=== PATIENT | female | born 1945 | race Caucasian/White ===

== ENCOUNTER 2017-08-12 06:00 | Observation (INO) | payer MEDICARE ==
--- NOTE | 2017-08-09 12:06 | Diagnostic Imaging Report ---
PROCEDURE: Frontal and lateral views of the chest. COMPARISON: None. INDICATIONS: PREOPERATIVE CHEST XRAY FOR KNEE SURGERY FINDINGS: Lines/tubes: None. Lungs: The lungs are well inflated and clear. There is no evidence of pneumonia or pulmonary edema. Pleura: There is no pleural effusion or pneumothorax. Heart and mediastinum: The heart and the mediastinum are normal. Atherosclerotic calcifications. Bones: No acute bony abnormality. Degenerative changes of the thoracic spine. IMPRESSION: No acute radiographic abnormality. Dictated by: Carlo Lamar M.D. on 08/09/2017 at 12:15 Electronically approved by: Carlo Lamar M.D. on 08/09/2017 at 12:15
[~2017-08-12] VITALS: Ht 157.5 cm; Wt 63.5 kg
[~2017-08-12 06:00] MED LIST: BACTRIM; CALCET TABLET1 EACH PO; LORAZEPAM; LOVAZA1 GM PO; MIACALCIN3.7 ML; OCUVITE TABLET1 EAC1 PO; PRILOSEC OTC20 MG PO; REGLAN; SUPER ENZYMES PO; VITAMIN B-125000 MCG SL; VITAMIN D35000 UNI1 PO
--- OUTSIDE RECORDS SUMMARY | 2017-08-12 06:03 | XMS REPORT ---
Author Author [facility] Address Unknown Phone Unavailable Care Team Providers Care Alley Worker Name Role Phone AMAN GARCIA Unavailable Unavailable Problems This patient has no known problems. Allergies, Adverse Reactions, Alerts This patient has no known allergies or adverse reactions. Medications This patient has no known medications. Results Test Description Test Time Test Comments Text Results Atomic Results Result Comments CHEST 2 VIEWS [place] [address] Patient Name: GUILLERMO ECKERT MR #: [id number] : 1945 Age/Sex: 72/F Req #: [id number] Adm Physician: Ordered by: AMAN GARCIA MD Report #: [id number] Location: OR Room/Bed: Procedure: [id number] DX/CHEST 2 VIEWS Exam Date: 08/09/17 Exam Time: 1140 REPORT STATUS: Signed PROCEDURE: Frontal and lateral views of the chest. COMPARISON: None. INDICATIONS: PREOPERATIVE CHEST XRAY FOR KNEE SURGERY FINDINGS: Lines/tubes: None. Lungs: The lungs are well inflated and clear. There is no evidence of pneumonia or pulmonary edema. Pleura: There is no pleural effusion or pneumothorax. Heart and mediastinum: The heart and the mediastinum are normal. Atherosclerotic calcifications. Bones: No acute bony abnormality. Degenerative changes of the thoracic spine. IMPRESSION: No acute radiographic abnormality. Dictated by: Klaus Diaz M.D. on 2017 at 12:15 Electronically approved by: Klaus Diaz M.D. on 2017 at 12:15 Dictated By: KLAUS DIAZ MD 1215 Transcribed By: TESS on 08/09/17 1215 COPY TO: AMAN GARCIA MD
[2017-08-12] MEDS ORDERED: TRANEXAMIC ACID 1,000 MG/10 ML ML ONE (06:58)
[2017-08-12] MEDS ORDERED: MUPIROCIN 2% OINT 22 GM TUBE ONE (06:58)
[2017-08-12] MEDS ORDERED: BACITRACIN 50,000 UNIT VIAL ONE (06:59)
[2017-08-12] MEDS ORDERED: CELECOXIB 200 MG CAP ONE (07:07)
[2017-08-12] MEDS ORDERED: GABAPENTIN 300 MG CAP ONE (07:08)
[2017-08-12] MEDS ORDERED: CEFAZOLIN SOD 2 GM/D5W 50ML 50 ML IV ONE (07:08)
[2017-08-12] MEDS ORDERED: DEXAMETHASONE SOD PHOS 10 MG/1 ML VIAL ONE (07:08)
[2017-08-12] MEDS ORDERED: ROPIVACAINE 246.25 MG, EPINEPHRINE HCL 1:1000 0.5 MG, CLONIDINE HCL 0.08 MG, KETOROLAC ... INJ ONE ×5 (07:30)
[2017-08-12] MEDS ORDERED: ROPIVACAINE 0.5% 5 MG/ML 30 ML SDV ONE ×2 (07:30→18:27)
[2017-08-12] MEDS ORDERED: LIDOCAINE 2% /EPINEPHRINE 20 ML SDV INJ ONE (07:31)
[2017-08-12] MEDS ORDERED: HYDROCODONE/APAP 5MG-325MG TAB PO PRN (10:00)
[2017-08-12] MEDS ORDERED: PROMETHAZINE HCL (IM) 25 MG/ML VIAL IM PRN (10:00)
[2017-08-12] MEDS ORDERED: ONDANSETRON HCL INJ 2 MG/ML VIAL IV PRN (10:00)
[2017-08-12] MEDS ORDERED: DIPHENHYDRAMINE HCL INJ 50 MG/ML VIAL IM/IV PRN (10:00)
[2017-08-12] MEDS ORDERED: ACETAMINOPHEN 650 MG SUPP PR PRN (10:00)
[2017-08-12] MEDS ORDERED: KETOROLAC TROMETHAMINE 30 MG/ML VIAL IV PRN (10:00)
[2017-08-12] MEDS ORDERED: DOCUSATE SODIUM 100 MG CAP PO PRN (10:00)
--- NOTE | 2017-08-12 10:59 | Diagnostic Imaging Report ---
PROCEDURE:KNEE RIGHT 1-2 VIEWS TECHNIQUE:AP and crosstable lateral views right knee INDICATION:Postop surgical evaluation COMPARISON:None. FINDINGS: See conclusion. CONCLUSION: 1. Total right knee arthroplasty intact and in anatomic alignment. 2. Expected postoperative sequela without acute abnormality. Dictated by: Max Pisano M.D. on 08/12/2017 at 11:07 Electronically approved by: Max Pisano M.D. on 08/12/2017 at 11:07
--- NOTE | 2017-08-12 11:16 | Operative Report ---
DATE OF PROCEDURE: August 12, 2017 SHIP'S COOK: Francois Albarran PA-C The patient was brought to the operating room for induction of anesthesia. Throughout this case, my PA's assistance was necessary for retraction of soft tissue and positioning of the extremity. This allows for efficient and technically successful execution of the operation and is considered medically necessary. PREOPERATIVE DIAGNOSIS: Osteoarthritis, right knee. POSTOPERATIVE DIAGNOSIS: Osteoarthritis, right knee. PROCEDURE: Right total knee arthroplasty. INDICATIONS: The patient is a 72-year-old lady with end-stage arthritis of her right knee. She has failed conservative management and would like to proceed with a right total knee replacement. She has been through a left total knee replacement about 8 years ago. I have reviewed the risks and benefits, the implants, the recovery and answered all of her questions. She states she understands and wishes to proceed. DESCRIPTION OF PROCEDURE: The patient was brought to the operating room and placed under general anesthetic. She received a regional block, prophylactic antibiotics and tranexamic acid in the holding area. Her right lower extremity was prepped and draped in a sterile manner. A preoperative time out was performed. The extremity was exsanguinated, and a proximal tourniquet was inflated to 300 mmHg. A limited incision anterior approach with medial parapatellar arthrotomy was performed. Soft-tissue releases were performed to bring the knee up into flexion with the patella everted. Complete loss of articular cartilage down to polished subchondral bone in the medial compartment was noted. Marginal osteophytes and meniscal remnants were removed. The cruciate ligaments were sacrificed. A Jeter and Nephew posterior stabilized Jeanette II knee system was used throughout the case. An extramedullary cutting guide was used to resect the proximal tibia. The tibial baseplate was a size number 3. The central fin punch was impacted, and attention was directed towards the distal femur. An intramedullary cutting guide was used to resect the distal femur in 6 degrees of valgus and rotation referenced off of a combination of landmarks including Chencho line, the epicondylar axis and posterior condyles. The femoral component was a size number 4. The anterior and posterior chamfer cuts were made. Trial reductions were then performed. A 9-mm ultracongruent tibial insert provided optimal soft-tissue balancing in full extension and 90 degrees of flexion. The patella was resurfaced with a 29-mm x 7.5-mm patellar button. The thickness was checked before and after and was right around 21 mm. Patellar tracking was concentric. The trial implants were removed. A 100 mL premixed pericapsular injection was placed into the soft tissue. The knee was thoroughly irrigated with a Pulsavac. The components were cemented into place using a single mix of Palacos cement preloaded with gentamicin. Care was taken to remove extravasated cement. The wound was further irrigated while the cement cured. The arthrotomy was then closed with interrupted #1 Ethibond. The knee was put through flexion and extension to ensure a secure closure. The skin was closed subcuticular Vicryl and kirstin. A sterile bandage was applied. The patient was transported to the recovery room in stable condition. Blood loss was minimal. All needle and sponge counts were correct. Job#: [id number]
[2017-08-12] MEDS: ACETAMINOPHEN 1000 MG/100 ML IV SCH ×3 (12:00→23:56)
[2017-08-12] MEDS ORDERED: CEFAZOLIN SOD 1 GM/NS 50ML 50 ML IV SCH (14:00)
[2017-08-12] MEDS ORDERED: CEFAZOLIN SOD 1 GM VIAL ONE (15:11)
[2017-08-12] MEDS ORDERED: ONDANSETRON HCL INJ 2 MG/ML VIAL ONE ×2 (15:11→18:43)
[2017-08-12] MEDS ORDERED: SODIUM CHLORIDE 0.9% 50ML 50 ML ONE (15:13)
[2017-08-12] MEDS ORDERED: PROMETHAZINE HCL (IM) 25 MG/ML VIAL ONE (15:57)
[2017-08-12] MEDS: CEFAZOLIN SOD 1 GM VIAL IV SCH ×2 (16:00→23:48)
[2017-08-12] MEDS ORDERED: LIDOCAINE 2%/ EPINEPHRINE 20ML MDV ONE (18:27)
[2017-08-12] MEDS ORDERED: FENTANYL CITRATE/PF 100MCG/2 ML INJ ONE (18:32)
[2017-08-12] MEDS ORDERED: MIDAZOLAM HCL 2 MG/2 ML VIAL ONE (18:32)
[2017-08-12] MEDS ORDERED: DEXAMETHASONE SOD PHOS INJ 4 MG/ML VIAL ONE (18:43)
[2017-08-12] MEDS ORDERED: LIDOCAINE HCL 2% LOCAL INJ 5 ML SDV VIAL INJ ONE (18:43)
[2017-08-12] MEDS ORDERED: PROPOFOL IV EMULSION 10 MG/ML 20 ML VIAL ONE (18:43)
[2017-08-12] MEDS ORDERED: SEVOFLURANE INHAL SOLN 250 ML PEN BTL ONE (18:43)
[2017-08-12 18:51] VITALS: BP 119/57
[2017-08-12 18:52] VITALS: BP 119/57
[2017-08-12 18:57] VITALS: BP 119/57
[2017-08-12] MEDS: FAMOTIDINE 20 MG TAB PO SCH (19:10)
[2017-08-12] MEDS: CELECOXIB 100 MG CAP PO SCH (19:10)
[2017-08-12] MEDS: ASPIRIN 325 MG TAB PO SCH (19:10)
[2017-08-12] MEDS: SODIUM CHLORIDE 0.9% 1000ML 1,000 ML IV SCH ×2 (19:55→20:36)
[2017-08-12 20:00] VITALS: BP 97/52
[2017-08-12] MEDS ORDERED: ZOLPIDEM TARTRATE 5 MG TAB PO PRN (21:00)
[2017-08-13 02:35] VITALS: BP 93/49
[2017-08-13] MEDS ORDERED: ARTIFICIAL TEARS (OPTH) 15 ML BTL OU PRN (05:30)
[2017-08-13] MEDS: SODIUM CHLORIDE 0.9% 1000ML 1,000 ML IV SCH (05:47)
[2017-08-13] MEDS: ACETAMINOPHEN 1000 MG/100 ML IV SCH (05:49)
[2017-08-13 06:12] VITALS: BP 96/46
[2017-08-13 07:05] LABS: HEMATOCRIT 33.4 % (34.2-44.1); HEMOGLOBIN 11.2 g/dL (12.0-16.0)
[2017-08-13 08:16] VITALS: BP 109/54
[2017-08-13] MEDS: CELECOXIB 100 MG CAP PO SCH (08:32)
[2017-08-13] MEDS: CEFAZOLIN SOD 1 GM VIAL IV SCH (08:32)
[2017-08-13] MEDS: FAMOTIDINE 20 MG TAB PO SCH (08:32)
[2017-08-13] MEDS: ASPIRIN 325 MG TAB PO SCH (08:32)
[2017-08-13] MEDS: HYDROCODONE/APAP 7.5MG-325MG 1 EA TAB PO PRN ×2 (08:39→12:45)
[2017-08-13 09:45] VITALS: BP 109/54
[2017-08-13] MEDS ORDERED: ACETAMINOPHEN 1000 MG/100 ML IV PRN (10:00)
[2017-08-13] MEDS ORDERED: CELEBREX100 MG PO (10:58)
[2017-08-13] MEDS ORDERED: ASPIRIN325 MG PO (10:58)
[2017-08-13 11:31] VITALS: BP 120/58
[2017-08-13] MEDS ORDERED: NORCO 7.5-3251 EACH PO (13:10)
--- NOTE | 2017-09-13 15:19 | Discharge Summary ---
CHIEF COMPLAINT: Right knee pain. HISTORY OF PRESENT ILLNESS: This patient is a 72-year-old female who complains of right knee pain for many years. She has already been through a left total knee replacement and is happy with the results. She has tried cortisone injections and anti-inflammatories without lasting relief. Her x-rays are consistent with end-stage arthritis of the right knee. The treatment options were discussed. The risks and benefits of a right total knee replacement were explained. The patient states she understands and wishes proceed. HOSPITAL COURSE: The patient underwent a right total knee replacement without complications. She was then transferred to the recovery room and the floor in stable condition. She progressed fine with postoperative physical therapy. She remained stable throughout her hospital stay. She was able to be discharged home on postop day 1. PRINCIPAL DIAGNOSIS: Osteoarthritis of the right knee. PRINCIPAL PROCEDURE: Right total knee replacement. DISCHARGE INSTRUCTIONS: The patient was discharged home with home health and physical therapy arranged. She was to be weightbearing as tolerated with a rolling walker. She was to resume her home medications as directed. She was to take aspirin twice a day for thrombin prophylaxis. She was instructed to follow up in our office in 8-10 days for followup. DICTATED BY JOSE CRUZ GOMEZ PA-C AMAN GARCIA MD Job#: [id number] [place]
== END 2017-08-13 13:52 | disposition home health service (06) ==
LOC: OR 06:00 → MED/SURG 18:45 → INTOOBSV 18:45
PROVIDERS: ADMIT Specialist; ATTEND Specialist
DX: M17.11 Unilateral primary osteoarthritis, right knee (principal); Z96.652 Presence of left artificial knee joint; L40.9 Psoriasis, unspecified; D64.9 Anemia, unspecified
CPT/HCPCS: 27447; 36415; 71046; 73560; 85014; 85018; 86850; 86900; 86920; 97110; 97116; 97161; C1713; G0378 ×2; G8978; G8979; J0171; J0690 ×2; J1100 ×2; J1885; J2001 ×2; J2250; J2405; J2550; J2795

== ENCOUNTER 2017-08-16 00:35 | Emergency (ER) | payer MEDICARE ==
[~2017-08-16] VITALS: Ht 157.5 cm; Wt 63.5 kg
[~2017-08-16 00:35] MED LIST changes: +ASPIRIN325 MG PO; +CELEBREX100 MG PO; +NORCO 7.5-3251 EACH PO
--- OUTSIDE RECORDS SUMMARY | 2017-08-16 00:39 | XMS REPORT | Continuity of Care Document ---
Author Author [facility] Organization [facility] Address [address] [place] [address] Phone Unavailable Care Team Providers Care Scientific Specialist Name Role Phone TYLER SANCHEZ MD PCP Insurance Providers Guarantor Guillermo Eckert Address [address] [place] [address] Email [email or web address] Policy Number [id number] Subscriber's Name Guillermo Eckert Relationship 18 Self / Same As Patient Group Number [id number] Group Name SF Effective Date 10 Advance Directives Directive Response Recorded Date/Time Does the patient have an advance directive? No 08/12/17 6:53pm If yes, is advance directive on file with [facility]? No 12/31/12 9:42am If not on file with [facility] will patient provide a copy? Yes 08/09/17 10:48am Do you have a Directive to Physician? No 08/09/17 10:48am Do you have a Medical Power of [employer]? No 08/09/17 10:48am Do you have an out of hospital Do Not Resuscitate Order? No 08/09/17 10:48am Do you have any special needs we should be aware of? No 08/09/17 10:48am Do you have a support person here with you today? Yes 08/09/17 10:49am Did patient receive Notice of Privacy Practices? Yes 08/09/17 10:49am Did patient receive patient rights and responsibilities? Yes 08/09/17 10:49am Problems No problem information available. Medications Current Home Medications Medication Dose Units Route Directions Days Qty Instructions Start Date Aspirin 325 Mg Tablet 325 Mg Oral Twice A Day 21 Days 08/13/17 Calcium Carb & Lact/Vitamin D3 (Calcet Tablet) 1 Each Tablet 1 Tab-Cap Oral Daily Celecoxib (Celebrex*) 100 Mg Capsule 200 Mg Oral Daily 30 Days 12/23 Cholecalciferol (Vitamin D3) (Vitamin D3) 5,000 Unit Tablet 5,000 Mg Oral Daily Cyanocobalamin (Vitamin B-12) (Vitamin B-12) 5,000 Mcg Tab.subl 5,000 Mcg Sublingual Daily Hydrocodone Bit/Acetaminophen ([place] 7.5-325 Tablet) 1 Each Tablet 1 Ea Oral Every 4 Hours as needed for Pain Lorazepam 1 Mg Bedtime [place]-3 Acid Ethyl Esters (Lovaza) 1 Gm Capsule 1 Gm Oral Daily Omeprazole Magnesium (Prilosec Otc) 20 Mg Tablet.dr 20 Mg Oral As Needed Super Enzymes 1 Tab Oral As Needed Vit A,C & E/Lutein/Minerals (Ocuvite Tablet) 1 Each Tablet 1 Each Oral Daily Past Home Medications Medication Directions Ordered Status Bactrim , Discontinued Calcitonin,[place],Synthetic (Miacalcin) 3.7 Ml [place].pump, 3.7 Ml Nasal Bedtime Discontinued Reglan , As Needed Discontinued Social History Social History Problem Response Recorded Date/Time Onset Date Status Hx Psychiatric Problems No 08/12/2017 6:53pm Not Applicable Not Applicable Hx Eating Disorder No 08/12/2017 6:53pm Not Applicable Not Applicable Hx Substance Use Disorder No 08/12/2017 6:53pm Not Applicable Not Applicable Hx Depression No 08/12/2017 6:53pm Not Applicable Not Applicable Hx Alcohol Use No 08/12/2017 6:53pm Not Applicable Not Applicable Hx Substance Use Treatment No 08/12/2017 6:53pm Not Applicable Not Applicable Hx Physical Abuse No 08/12/2017 6:53pm Not Applicable Not Applicable Smoking Status Start Date Stop Date Never Smoker Hospital Discharge Instructions No hospital discharge instruction information available. Plan of Care Discharge Date 08/13/17 1:52pm Disposition HOME HEALTH SERVICE Instructions/Education Provided Post Operative Pain Stitches and Mandy Care Prescriptions See Medication Section Referrals AMAN GARCIA MD (Orthopedic) Order Date: 1 Week Entered Date: 08/13/2017 10:48am Address: [address] [place] [place] [address] [place] [id number] Additional Instructions/Education F/U ON SATURDAY NEXT WEEK WITH DR. GARCIA ACTIVITY TOLERATED CPM 3 TIMES A DAY FOR 2 HOURS AT A TIME. LAST CPM RANGE NOTED AT 65 DEGREES. INCREASE BY 5 DEGREES IF TOLERATED OK TO SHOWER TOMORROW. DO NOT SIT IN THE BATHTUB CHANGE DRESSING TO KNEE DAILY. Functional Status Query Response Date Recorded FUNCTIONAL STATUS . August 12, 2017 5:01pm Assistive Devices None August 12, 2017 6:57pm Ambulation Ability Minimum Assistance 1 person assist August 12, 2017 6:57pm Toileting Ability Minimum Assistance August 12, 2017 6:57pm Allergies, Adverse Reactions, Alerts No known allergies. Immunizations No immunization information available. Vital Signs Acute Vital Signs Vital Response Date/Time Temperature (Fahrenheit) 96.8 degrees F (97.6 - 99.5) 08/13/2017 11:31am Pulse Pulse Rate (adult) 63 bpm (60 - 90) 08/13/2017 11:31am Respiratory Rate 17 bpm (12 - 24) 08/13/2017 11:31am Blood Pressure 120/58 mm Hg 08/13/2017 11:31am Height 5 ft 2 in 08/12/2017 6:52pm Weight 140 lb 08/12/2017 6:52pm Body Mass Index 25.6 kg/m^2 08/12/2017 6:53pm Results Laboratory Results Test Name Result Units Flags Reference Collection Date/Time Result Date/ Time Comments Hemoglobin 11.2 g/dL L 12.0-16.0 08/13/2017 6:45am 08/13/2017 7:10am Hematocrit 33.4 % L 34.2-44.1 08/13/2017 6:45am 08/13/2017 7:10am Procedures Procedure Status Date Provider(s) Total replacement of right knee joint Completed 08/12/17 AMAN GARCIA MD X-ray of chest, two views Active 08/09/17 AMAN GARCIA MD Encounters Encounter Location Arrival/Admit Date Discharge/Depart Date Attending Provider Discharged Inpatient (obs) [facility] 08/12/17 6:45pm 12/23 1:52pm AMAN GARCIA MD
--- NOTE | 2017-08-16 02:59 | Diagnostic Imaging Report ---
EXAMINATION: ABDOMEN ACUTE SERIES W/PA CXR INDICATION: Unable to pass stool COMPARISON: None FINDINGS: TUBES and LINES: None. LUNGS: Lungs are well inflated. Lungs are clear. There is no evidence of pneumonia or pulmonary edema. PLEURA: No pleural effusion or pneumothorax. HEART AND MEDIASTINUM: The cardiomediastinal silhouette is unremarkable. BONES AND SOFT TISSUES: No acute osseous lesion. Soft tissues are unremarkable. ABDOMEN: No free air under the diaphragm. Moderate amount of stool throughout the left hemicolon and rectum. IMPRESSION: 1. No acute thoracic abnormality. 2. Constipation. Signed by: Dr. Ethan Brooks M.D. on 08/16/2017 2:56 AM
== END 2017-08-16 03:34 | disposition home or self-care (01) ==
LOC: ER 00:35
DX: R10.13 Epigastric pain (principal); K59.00 Constipation, unspecified; I10 Essential (primary) hypertension; K21.9 Gastro-esophageal reflux disease without esophagitis; K58.9 Irritable bowel syndrome, unspecified; Z87.19 Personal history of other diseases of the digestive system
CPT/HCPCS: 74022; 99283

== ENCOUNTER 2020-06-15 09:22 | Inpatient (IN) | payer MEDICARE ==
[~2020-06-15] VITALS: Ht 157.5 cm; Wt 63.5 kg
[2020-06-15] VITALS (7 sets, daily range): BP systolic 104–163; BP diastolic 55–82
[2020-06-15] MEDS ORDERED: CEFEPIME 1GM/NS 0.9% 50 ML 50 ML IV STA (09:39)
[2020-06-15 10:00] LABS: HEMOGLOBIN 7.3 g/dL (12.0-16.0); LYMPHOCYTES # (AUTO) 0.3 (1.0-3.2); LYMPHOCYTES % 62.7 % (18.0-39.1); MEAN CORPUSCULAR HEMOGLOBIN 31.9 pg (28-32); MEAN CORPUSCULAR HGB CONC 32.7 g/dL (31-35); MEAN CORPUSCULAR VOLUME 97.4 fL (81-99); MONOCYTES # (AUTO) 0.1 (0.2-0.8); MONOCYTES % 13.7 % (4.4-11.3); NEUTROPHILS # (AUTO) 0.1 (2.1-6.9); NEUTROPHILS % 17.7 % (38.7-80.0); RED BLOOD COUNT 2.29 x10e6/uL (3.6-5.1); RED CELL DISTRIBUTION WIDTH 17.6 % (11.7-14.4)
[2020-06-15 10:09] LABS: HEMATOCRIT 22.3 % (34.2-44.1)
[2020-06-15 10:11] LABS: PLATELET COUNT 11 x10e3/uL (140-360)
[2020-06-15 10:21] LABS: CLARITY,URINE CLEAR (CLEAR); COLOR,URINE YELLOW (YELLOW); LEUKOCYTE ESTERASE ,URINE NEGATIVE (NEGATIVE)
[2020-06-15 10:22] LABS: KETONES,URINE NEGATIVE (NEGATIVE); NITRITE,URINE NEGATIVE (NEGATIVE); PROTEIN,URINE DIPSTICK TRACE (NEGATIVE); URINE UROBILINOGEN 0.2 mg/dL (0.2 - 1)
[2020-06-15 10:26] LABS: ALANINE AMINOTRANSFERASE 14 IU/L (0-55); ALBUMIN 3.9 g/dL (3.5-5.0); ALBUMIN/GLOBULIN RATIO 1.2 (0.8-2.0); ALKALINE PHOSPHATASE 107 IU/L (40-150); ANION GAP 13.7 mmol/L (8-16); BLOOD UREA NITROGEN 14 mg/dL (7-26); BUN/CREATININE RATIO 18 (6-25); CALCIUM 9.4 mg/dL (8.4-10.2); CARBON DIOXIDE 27 mmol/L (22-29); CHLORIDE 103 mmol/L (98-107); CREATININE, SERUM 0.78 mg/dL (0.57-1.11); EST GLOMERULAR FILTRATION RATE > 60 ML/MIN (60-); GLUCOSE 117 mg/dL (74-118); POTASSIUM 3.7 mmol/L (3.5-5.1); SODIUM 140 mmol/L (136-145)
[2020-06-15] MEDS ORDERED: SODIUM CHLORIDE 0.9% 250ML 250 ML IV ONE (10:30)
[2020-06-15 10:31] LABS: BACTERIA,URINE FEW /HPF; RBC,URINE 0-5 /HPF (0-5); WBC,URINE (MAN) 0-5 /HPF (0-5)
[2020-06-15 10:34] LABS: EPITHELIAL CELLS,URINE RARE /LPF
[2020-06-15 11:35] LABS: BAND NEUTROPHILS % (MANUAL) 2 %; LYMPHOCYTES % (MANUAL) 72 % (19-48); MONOCYTES % (MANUAL) 10 % (3.4-9.0); NEUTROPHILS % (MANUAL) 16 % (40-74)
[2020-06-15 11:37] LABS: ANISOCYTOSIS SLIGHT; HYPOCHROMASIA SLIGHT; RBC MORPHOLOGY COMMENT ABNORMAL
[2020-06-15 11:38] LABS: PLATELET ESTIMATE MARKEDLY DECREASED; PLATELET MORPHOLOGY COMMENT NORMAL
[2020-06-15] MEDS ORDERED: SODIUM CHLORIDE 0.9% 250ML 250 ML ONE ×2 (16:07→19:34)
[2020-06-15] MEDS ORDERED: COLACE100 MG PO (17:45)
[2020-06-16] VITALS (7 sets, daily range): BP systolic 134–163; BP diastolic 57–89
[2020-06-16 05:18] LABS: BASOPHILS % 3.3 % (0.0-1.0); HEMATOCRIT 28.1 % (34.2-44.1); HEMOGLOBIN 9.6 g/dL (12.0-16.0); LYMPHOCYTES # (AUTO) 0.3 (1.0-3.2); LYMPHOCYTES % 53.3 % (18.0-39.1); MEAN CORPUSCULAR HEMOGLOBIN 30.2 pg (28-32); MEAN CORPUSCULAR HGB CONC 34.2 g/dL (31-35); MEAN CORPUSCULAR VOLUME 88.4 fL (81-99); MONOCYTES # (AUTO) 0.2 (0.2-0.8); MONOCYTES % 28.3 % (4.4-11.3); NEUTROPHILS # (AUTO) 0.1 (2.1-6.9); NEUTROPHILS % 10.1 % (38.7-80.0); PLATELET COUNT 90 x10e3/uL (140-360); RED BLOOD COUNT 3.18 x10e6/uL (3.6-5.1); RED CELL DISTRIBUTION WIDTH 18.3 % (11.7-14.4)
[2020-06-16 07:08] LABS: BAND NEUTROPHILS % (MANUAL) 2 %; BLAST CELLS % MANUAL 10; LYMPHOCYTES % (MANUAL) 64 % (19-48); MONOCYTES % (MANUAL) 6 % (3.4-9.0); NEUTROPHILS % (MANUAL) 6 % (40-74); PROMYELOCYTES % (MANUAL) 12 % (0-0)
[2020-06-16 07:10] LABS: ANISOCYTOSIS SLIGHT
[2020-06-16 07:11] LABS: MICROCYTOSIS SLIGHT; PLATELET ESTIMATE MARKEDLY DECREASED; PLATELET MORPHOLOGY COMMENT NORMAL; RBC MORPHOLOGY COMMENT ABNORMAL
[2020-06-16] MEDS: SENNOSIDES 8.6 MG TAB PO SCH ×2 (08:37→16:51)
[2020-06-17] VITALS (8 sets, daily range): BP systolic 122–146; BP diastolic 53–122
[2020-06-17 07:27] LABS: HEMATOCRIT 29.2 % (34.2-44.1); LYMPHOCYTES # (AUTO) 0.4 (1.0-3.2); LYMPHOCYTES % 58.2 % (18.0-39.1); MEAN CORPUSCULAR HEMOGLOBIN 30.5 pg (28-32); MEAN CORPUSCULAR HGB CONC 34.2 g/dL (31-35); MONOCYTES # (AUTO) 0.2 (0.2-0.8); MONOCYTES % 26.9 % (4.4-11.3); NEUTROPHILS # (AUTO) 0.1 (2.1-6.9); NEUTROPHILS % 10.4 % (38.7-80.0); PLATELET COUNT 73 x10e3/uL (140-360); RED BLOOD COUNT 3.28 x10e6/uL (3.6-5.1); RED CELL DISTRIBUTION WIDTH 18.1 % (11.7-14.4)
[2020-06-17 07:45] LABS: ANION GAP 13.5 mmol/L (8-16); BLOOD UREA NITROGEN 9 mg/dL (7-26); BUN/CREATININE RATIO 13 (6-25); CARBON DIOXIDE 26 mmol/L (22-29); CHLORIDE 105 mmol/L (98-107); CREATININE, SERUM 0.69 mg/dL (0.57-1.11); EST GLOMERULAR FILTRATION RATE > 60 ML/MIN (60-); GLUCOSE 117 mg/dL (74-118); POTASSIUM 3.5 mmol/L (3.5-5.1); SODIUM 141 mmol/L (136-145)
[2020-06-17] MEDS: SENNOSIDES 8.6 MG TAB PO SCH ×2 (09:00→17:00)
[2020-06-17 11:28] LABS: LYMPHOCYTES % (MANUAL) 72 % (19-48); MONOCYTES % (MANUAL) 4 % (3.4-9.0); MYELOCYTES % (MANUAL) 4 % (0-0); NEUTROPHILS % (MANUAL) 12 % (40-74); PROMYELOCYTES % (MANUAL) 8 % (0-0)
[2020-06-17 11:29] LABS: ANISOCYTOSIS SLIGHT; MICROCYTOSIS SLIGHT
[2020-06-17 11:30] LABS: RBC MORPHOLOGY COMMENT ABNORMAL
[2020-06-17 11:31] LABS: PLATELET ESTIMATE MARKEDLY DECREASED; PLATELET MORPHOLOGY COMMENT NORMAL
[2020-06-18] VITALS (8 sets, daily range): BP systolic 92–164; BP diastolic 54–75
[2020-06-18 09:14] LABS: BASOPHILS % 3.6 % (0.0-1.0); HEMATOCRIT 29.7 % (34.2-44.1); HEMOGLOBIN 9.9 g/dL (12.0-16.0); LYMPHOCYTES # (AUTO) 0.5 (1.0-3.2); LYMPHOCYTES % 63.9 % (18.0-39.1); MEAN CORPUSCULAR HGB CONC 33.3 g/dL (31-35); MONOCYTES # (AUTO) 0.1 (0.2-0.8); MONOCYTES % 16.9 % (4.4-11.3); NEUTROPHILS # (AUTO) 0.1 (2.1-6.9); NEUTROPHILS % 14.4 % (38.7-80.0); PLATELET COUNT 63 x10e3/uL (140-360); RED CELL DISTRIBUTION WIDTH 17.7 % (11.7-14.4)
[2020-06-18] MEDS: SENNOSIDES 8.6 MG TAB PO SCH ×2 (09:17→17:00)
[2020-06-19 00:16] VITALS: BP 147/75
[2020-06-19 05:43] VITALS: BP 159/65
== END 2020-06-19 07:15 | disposition short-term general hospital (02) | DRG 809 ==
LOC: ER 09:45 → ERHOLD 10:28 → MED/SURG3 14:59 → OBSVTOIN 06-16 11:09
PROVIDERS: ADMIT Internal Medicine; ATTEND Internal Medicine
PROC: 30233N1 Transfusion of Nonautologous Red Blood Cells into Peripheral Vein, Percutaneous Approach (ICD-10-PCS; principal; 2020-06-15)
PROC: 30233R1 Transfusion of Nonautologous Platelets into Peripheral Vein, Percutaneous Approach (ICD-10-PCS; 2020-06-15)
DX: D70.1 Agranulocytosis secondary to cancer chemotherapy (principal); C92.00 Acute myeloblastic leukemia, not having achieved remission; N39.0 Urinary tract infection, site not specified; D61.82 Myelophthisis; D69.6 Thrombocytopenia, unspecified; Z96.651 Presence of right artificial knee joint; Z88.8 Allergy status to other drugs, medicaments and biological substances; Z87.440 Personal history of urinary (tract) infections; Z20.828 Contact with and (suspected) exposure to other viral communicable diseases; K59.00 Constipation, unspecified; K57.90 Diverticulosis of intestine, part unspecified, without perforation or abscess without bleeding
CPT/HCPCS: 36415; 71045; 80048; 80053; 81001; 85025; 86850; 86900; 86920; 87040; 87086; 99284; G0378; J0692; J7050; P9016; P9034; U0002